=== PATIENT | female | born 1975 | race American Indian/Alaskan Native ===

== ENCOUNTER → 2024-05-05 | Outpatient (CLI) | payer OTHER, MEDICAID, SELFPAY ==
--- NOTE | 2024-05-05 13:39 | XR_ITS ---
Examination: Foot, left, 3 views Technique: AP, oblique, lateral views foot, 3 views Date and time of exam: May 05, 2024 1347 hours INDICATIONS: Foot pain beginning one month ago. FINDINGS: No acute fracture No dislocation Mild to moderate narrowing first metatarsophalangeal joint Prominent ossification in the plantar fascia IMPRESSION: Moderate osteoarthritis first metatarsophalangeal joint Prominent ossification in the plantar fascia
--- NOTE | 2024-05-05 13:39 | XR_ITS ---
EXAMINATION: Ankle, left 3 views . Technique: Ankle AP, oblique, lateral 3 views Date and time of exam: May 05, 2024 1347 hours INDICATIONS: Ankle, foot pain beginning one month ago. FINDINGS: No acute fracture No dislocation Heavy ossification in the plantar fascia IMPRESSION: Heavy ossification plantar fascia
--- NOTE | 2024-05-05 13:39 | XR_ITS ---
Examination: Retroperitoneal ultrasound, complete Technique: Multiple high resolution grayscale images of the retroperitoneum obtained, including kidneys and bladder. Exam date and time:May 05, 2024 1401 hours INDICATIONS: Left flank pain beginning one week ago FINDINGS: Right kidney 10.1 x 5.5 x 4.2 cm cortex 1.4 cm Left kidney 10.5 x 4.8 x 5.0 cm renal cortex 1.7 cm Mild renal parenchymal scar formation No hydronephrosis Contracted urinary bladder volume 63 cc IMPRESSION: Bilateral renal cortical thinning Mild bilateral renal parenchymal scar formation No hydronephrosis
== END | disposition home or self-care (01) ==
PROVIDERS: PCP Nurse Practitioner Family; Referring Provider Nurse Practitioner Family; Visit Provider Nurse Practitioner Family
DX: M19.072 Primary osteoarthritis, left ankle and foot (principal); M72.2 Plantar fascial fibromatosis
CPT/HCPCS: 73610; 73630; 76770

== ENCOUNTER → 2024-05-12 | Outpatient (CLI) | payer OTHER, MEDICAID, SELFPAY ==
--- NOTE | 2024-05-12 13:20 | XR_ITS ---
Examination: Foot, left, 3 views Technique: AP, oblique, lateral views foot, 3 views Date and time of exam: May 12, 2024 1326 hours INDICATIONS: Left foot May 05, 2024 with fourth digit pain. FINDINGS: Moderate osteopenia No acute fracture Ossification in the plantar fascia IMPRESSION: No acute fracture
== END | disposition home or self-care (01) ==
PROVIDERS: PCP Nurse Practitioner Family; Referring Provider Podiatrist; Visit Provider Podiatrist
DX: S90.121A Contusion of right lesser toe(s) without damage to nail, initial encounter (principal); X58.XXXA Exposure to other specified factors, initial encounter
CPT/HCPCS: 73630

== ENCOUNTER → 2024-08-26 | Outpatient (CLI) | payer OTHER, MEDICAID, SELFPAY ==
--- NOTE | 2024-08-26 16:09 | XR_ITS ---
Examination: Knee, left , 3 views Technique: Knee AP, lateral, oblique 3 views Date and time of exam: August 26, 2024 1644 hrs. Indications: Left knee pain after coughing one month ago. Findings: No acute fracture No dislocation Minimal tricompartment osteoarthritis Impression: No fracture
--- NOTE | 2024-08-26 16:09 | XR_ITS ---
Examination: Foot, left, 3 views Technique: AP, oblique, lateral views foot, 3 views Date and time of exam: August 26, 2024 1644 hrs. Indications: Left foot pain beginning one month ago Findings: Mild narrowing first metatarsophalangeal joint Minimal bunion deformity No fracture or dislocation Significant ossification in the plantar fascia Impression: Mild narrowing first metatarsophalangeal joint Significant ossification plantar fascia
--- NOTE | 2024-08-26 16:09 | XR_ITS ---
EXAMINATION: Ankle, left 3 views . Technique: Ankle AP, oblique, lateral 3 views Date and time of exam: August 26, 2024 1642 hrs. Indications: Patient fell last month with injury to the ankle, ankle pain. Findings: No acute fracture Or dislocation No foreign body Ossification in the plantar fascia Impression: No acute fracture
== END | disposition home or self-care (01) ==
LOC: CDIM 15:44
PROVIDERS: Referring Provider Nurse Practitioner Family; Visit Provider Nurse Practitioner Family
DX: S99.912A Unspecified injury of left ankle, initial encounter (principal); W19.XXXA Unspecified fall, initial encounter; M25.562 Pain in left knee; M25.872 Other specified joint disorders, left ankle and foot
CPT/HCPCS: 73564; 73610; 73630

== ENCOUNTER → 2025-02-05 | Outpatient (CLI) | payer OTHER, MEDICAID, SELFPAY ==
--- NOTE | 2025-02-05 10:00 | XR_ITS ---
Examination: Breast ultrasound complete, bilateral Date and time of exam: February 05, 2025 1020 hours INDICATIONS: Mammogram March 18, 2024 focal asymmetry upper outer left breast Technique: Real-time grayscale ultrasonographic imaging bilateral breasts, including all 4 quadrants as well as nipple retroareolar and axillary regions. Findings: Sonographic images right breast No cystic or solid mass Sonographic images left breast Multiple benign cysts, the largest in the 2:00 position 9 x 7 mm Glandular tissue 2:00 position No solid nodules IMPRESSION: BI-RADS Category 2: Benign findings
--- NOTE | 2025-02-05 11:00 | XR_ITS ---
Examination: Diagnostic digital mammography, unilateral, left Computer aided detection 3-D breast Tomosynthesis, unilateral Date and time of exam: February 05, 2025, 11:00 AM INDICATIONS: Mammogram 01/23/2024 20 mm focal asymmetry upper outer left breast Technique: Nonmagnified MLO, CC views of the left breast have been obtained, reconstructed from 3-D Tomosynthesis images. R2 computer aided detection program utilized for evaluation of suspicious masses and/or abnormal calcifications. 3-D Tomosynthesis images obtained. Findings: Scattered areas of probable glandular density Stable focal asymmetry upper outer left breast No suspicious masses Impression: BI-RADS category 2: Benign findings Return to yearly follow-up mammography
== END | disposition home or self-care (01) ==
LOC: CDIM 09:57
PROVIDERS: PCP Nurse Practitioner Family; Referring Provider Nurse Practitioner Family; Visit Provider Nurse Practitioner Family
DX: R92.323 Mammographic fibroglandular density, bilateral breasts (principal); N64.89 Other specified disorders of breast
CPT/HCPCS: 76641; 77061; 77065; G0279